=== PATIENT | male | born 2000 | race Two or more races ===

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

== ENCOUNTER 2018-03-03 19:22 | Emergency (ER) | payer OTHER ==
[~2018-03-03] VITALS: Ht 172.7 cm; Wt 78.0 kg
[~2018-03-03 19:22] MED LIST: IBUPROFEN800 MG PO
[2018-03-04] MEDS ORDERED: LEVSIN/SL0.125 MG SL (08:15)
== END 2018-03-04 09:18 | disposition home or self-care (01) ==
LOC: ER 19:22
DX: R10.11 Right upper quadrant pain (principal)

== ENCOUNTER 2018-09-20 14:44 | Emergency (ER) | payer OTHER ==
[~2018-09-20] VITALS: Ht 172.7 cm; Wt 76.2 kg
[~2018-09-20 14:44] MED LIST changes: +LEVSIN/SL0.125 MG SL
== END 2018-09-20 15:55 | disposition home or self-care (01) ==
LOC: ER 14:44
DX: T81.49XA Infection following a procedure, other surgical site, initial encounter (principal)

== ENCOUNTER → 2018-11-16 | Emergency (ER) | payer OTHER ==
[~2018-11-16] VITALS: Ht 172.7 cm; Wt 81.6 kg
[~2018-11-16] MED LIST changes: +CEFUROXIME500 MG PO
== END | disposition home or self-care (01) ==
LOC: ER 20:49
DX: K52.89 Other specified noninfective gastroenteritis and colitis (principal)

== ENCOUNTER 2018-11-17 17:22 | Emergency (ER) | payer OTHER ==
[~2018-11-17] VITALS: Ht 172.7 cm; Wt 73.5 kg
== END 2018-11-17 20:24 | disposition home or self-care (01) ==
LOC: ER 17:22
DX: K29.70 Gastritis, unspecified, without bleeding (principal)

== ENCOUNTER 2019-01-20 14:24 | Emergency (ER) | payer OTHER ==
[~2019-01-20] VITALS: Ht 172.7 cm; Wt 74.8 kg
[2019-01-20] MEDS ORDERED: CARAFATE1 GM PO (17:39)
== END 2019-01-20 17:50 | disposition home or self-care (01) ==
LOC: ER 14:24
DX: R10.13 Epigastric pain (principal)

== ENCOUNTER 2019-09-24 04:03 | Emergency (ER) | payer OTHER ==
[~2019-09-24] VITALS: Ht 172.7 cm; Wt 80.7 kg
[~2019-09-24 04:03] MED LIST changes: +CARAFATE1 GM PO
== END 2019-09-24 06:34 | disposition home or self-care (01) ==
LOC: ER 04:03
DX: S91.242A Puncture wound with foreign body of left great toe with damage to nail, initial encounter (principal); W18.09XA Striking against other object with subsequent fall, initial encounter; Y93.89 Activity, other specified; Y92.098 Other place in other non-institutional residence as the place of occurrence of the external cause; Y99.8 Other external cause status; L60.0 Ingrowing nail

== ENCOUNTER 2019-11-01 07:38 | Emergency (ER) | payer OTHER ==
[~2019-11-01] VITALS: Ht 172.7 cm; Wt 74.8 kg
[2019-11-01] MEDS ORDERED: KETO10TA2 PO (12:17)
== END 2019-11-01 14:45 | disposition home or self-care (01) ==
LOC: ER 07:38
DX: S04.61XA Injury of acoustic nerve, right side, initial encounter (principal); Z20.828 Contact with and (suspected) exposure to other viral communicable diseases; Z77.122 Contact with and (suspected) exposure to noise; W31.89XA Contact with other specified machinery, initial encounter; Y93.89 Activity, other specified; Y92.69 Other specified industrial and construction area as the place of occurrence of the external cause; Y99.8 Other external cause status

== ENCOUNTER 2021-03-18 23:57 | Emergency (ER) | payer OTHER ==
[~2021-03-18] VITALS: Ht 172.7 cm; Wt 74.8 kg
[~2021-03-18 23:57] MED LIST changes: +KETO10TA2 PO
== END 2021-03-19 03:28 | disposition home or self-care (01) ==
LOC: ER 23:57
DX: R10.13 Epigastric pain (principal)

== ENCOUNTER 2021-03-31 18:40 | Emergency (ER) | payer OTHER ==
[~2021-03-31] VITALS: Ht 172.7 cm; Wt 76.2 kg
== END 2021-03-31 19:20 | disposition home or self-care (01) ==
LOC: ER 18:40
DX: K62.89 Other specified diseases of anus and rectum (principal); Z88.0 Allergy status to penicillin

== ENCOUNTER 2021-05-14 18:12 | Emergency (ER) | payer OTHER ==
[~2021-05-14] VITALS: Ht 172.7 cm; Wt 76.2 kg
== END 2021-05-15 00:40 | disposition home or self-care (01) ==
LOC: ER 18:12
DX: S20.20XA Contusion of thorax, unspecified, initial encounter (principal); W18.39XA Other fall on same level, initial encounter; Y92.018 Other place in single-family (private) house as the place of occurrence of the external cause; Y99.9 Unspecified external cause status; Z88.0 Allergy status to penicillin

== ENCOUNTER 2021-09-16 12:34 | Emergency (ER) | payer OTHER ==
[~2021-09-16] VITALS: Ht 172.7 cm; Wt 73.9 kg
== END 2021-09-16 19:45 | disposition home or self-care (01) ==
LOC: ER 12:34
DX: K52.9 Noninfective gastroenteritis and colitis, unspecified (principal)

== ENCOUNTER 2021-09-25 02:08 | Emergency (ER) | payer OTHER ==
[~2021-09-25] VITALS: Ht 172.7 cm; Wt 77.6 kg
[2021-09-25] MEDS ORDERED: KETO10TA2 PO (07:20)
== END 2021-09-25 07:53 ==
LOC: ER 02:08
DX: S43.401A Unspecified sprain of right shoulder joint, initial encounter (principal); X50.0XXA Overexertion from strenuous movement or load, initial encounter; X50.9XXA Other and unspecified overexertion or strenuous movements or postures, initial encounter; Y93.9 Activity, unspecified; Y92.9 Unspecified place or not applicable; Y99.9 Unspecified external cause status; Z88.0 Allergy status to penicillin

== ENCOUNTER 2021-10-17 12:40 | Emergency (ER) | payer OTHER ==
[~2021-10-17] VITALS: Ht 175.3 cm; Wt 77.1 kg
== END 2021-10-17 16:05 | disposition left against medical advice (07) ==
LOC: ER 12:40
DX: M25.561 Pain in right knee (principal); Z88.0 Allergy status to penicillin